=== PATIENT | male | born 1985 | race Caucasian/White ===

== ENCOUNTER → 2021-05-19 | Outpatient (CLI) | payer OTHER ==
--- NOTE | 2021-05-19 09:57 | RAD ---
EXAM: Bilateral hands, 3 views. HISTORY: Blunt trauma. COMPARISON: None. FINDINGS: 3 views of both hands are obtained. There is no acute fracture, dislocation or subluxation. There is no radiodense foreign body. There is minimal spurring at the base of the right first proxim al phalanx. IMPRESSION: No acute osseous finding. Electronically signed by: Cora Rivas MD (05/19/2021 9:54 AM) [id number]
== END ==
LOC: RAD 09:07
PROVIDERS: ATTEND Nurse Practitioner Family
DX: M77.8 Other enthesopathies, not elsewhere classified (principal)
CPT/HCPCS: 73130-50